=== PATIENT | male | born 1980 | race Caucasian/White ===

== ENCOUNTER 2020-05-18 13:18 | Emergency (ER) | payer SELFPAY ==
--- NOTE | 2020-05-18 13:31 | EDM.PDOC ---
ED HPI GENERAL MEDICAL PROBLEM - General Stated Complaint: abd pain Time Seen by Provider: 05/18/20 13:20 Source of Information: Reports: Patient History Limitations: Reports: No Limitations - History of Present Illness INITIAL COMMENTS - FREE TEXT/NARRATIVE: pt c/o gen weakness , recurrent fever and chills , abd painful cramping and watery diarrhea X 4 days , denies emesis any resp or CV sx any other associated sx or Hx of abd surgeries. abdomen Pain Score (Numeric/FACES): 6 - Related Data Allergies Allergy/AdvReac Type Severity Reaction Status Date / Time No Known Allergies Allergy Verified 05/18/20 13:28 Home Meds: Home Meds Levothyroxine Sodium 300 mcg PO ACBREAKFAST 05/18/20 [History] ED ROS GENERAL - Review of Systems Review Of Systems: See Below Constitutional: Reports: Fever, Chills, Fatigue HEENT: Reports: No Symptoms Respiratory: Reports: No Symptoms Cardiovascular: Reports: No Symptoms GI/Abdominal: Reports: Abdominal Pain, Anorexia, Diarrhea. Denies: Black Stool, Bloody Stool, Nausea, Vomiting : Reports: No Symptoms Musculoskeletal: Reports: No Symptoms Skin: Reports: No Symptoms Neurological: Reports: No Symptoms ED EXAM, GENERAL - Physical Exam Exam: See Below Exam Limited By: No Limitations General Appearance: Mild Distress, Moderate Distress Eye Exam: Bilateral Eye: Normal Inspection Ears: Normal External Exam Nose: Normal Inspection Throat/Mouth: Normal Inspection Neck: Normal Inspection, Supple Respiratory/Chest: No Respiratory Distress, Lungs Clear Cardiovascular: Normal Peripheral Pulses, Regular Rate, Rhythm GI/Abdominal: Normal Bowel Sounds, Tender. No: Guarding, Rebound Back Exam: Normal Inspection, Full Range of Motion Extremities: Normal Inspection, Normal Range of Motion Neurological: Alert, Oriented, CN II-XII Intact Skin Exam: Warm Course - Vital Signs Text/Narrative:: pt report no fever today and that his diarrhea is slowing down since last night, labs came back unremarkable, COVID test is a sent out and results are not available now. pt is resting comfortably after fluids and abd cramps has subsided. pt seems clinically to have gastroenteritis and supportive mng was recommended. Last Recorded V/S: Last Vital Signs Temp 37.6 C 05/18/20 13:20 Pulse 111 H 05/18/20 13:20 Resp 18 05/18/20 13:20 BP 135/80 05/18/20 13:20 Pulse Ox 98 05/18/20 13:20 - Orders/Labs/Meds Orders: Active Orders 24 hr Category Date Time Status CORONAVIRUS COVID-19 PCR PHL Stat Lab 05/18/20 13:32 Ordered Sodium Chloride 0.9% [Normal Saline] 1,000 ml Med 05/18/20 13:32 Active IV .BOLUS Medication Orders Sodium Chloride (Normal Saline) 1,000 mls @ 999 drops/hr IV .BOLUS ONE Stop: 05/19/20 04:32 Last Admin: 05/18/20 13:40 Dose: 999 drops/hr Documented by: TANIA Labs: Laboratory Tests 05/18/20 05/18/20 Range/Units 13:50 13:50 WBC 7.9 (4.5-12.0) X10-3/uL RBC 4.41 (4.30-5.75) x10(6)uL Hgb 13.8 (13.5-17.8) g/dL Hct 41.3 (30.0-51.3) % MCV 93.6 (80-96) fL MCH 31.2 (27.7-33.6) pg MCHC 33.4 (32.2-35.4) g/dL RDW 12.9 (11.5-15.5) % Plt Count 210 (125-369) X10(3)uL Sodium 132 L D (135-145) mmol/L Potassium 3.7 (3.5-5.3) mmol/L Chloride 98 L D (100-110) mmol/L Carbon Dioxide 26 (21-32) mmol/L BUN 11 D (7-18) mg/dL Creatinine 1.2 (0.70-1.30) mg/dL Est Cr Clr Drug Dosing 97.04 mL/min Estimated GFR (MDRD) > 60 (>60) BUN/Creatinine Ratio 9.2 (9-20) Glucose 117 H (80-116) mg/dL Calcium 8.0 L (8.6-10.2) mg/dL Total Bilirubin 0.5 (0.1-1.3) mg/dL AST 26 H (5-25) IU/L ALT 21 (12-36) U/L Alkaline Phosphatase 81 (56-112) IU/L Total Protein 6.7 (6.0-8.0) g/dL Albumin 3.3 L (3.5-5.2) g/dL Globulin 3.4 g/dL Albumin/Globulin Ratio 1.0 Meds: Medications Generic Name Dose Route Start Last Admin Trade Name Abhijit PRN Reason Stop Dose Admin Sodium Chloride 1,000 mls @ 999 drops/hr 05/18/20 13:32 05/18/20 13:40 Normal Saline IV 05/19/20 04:32 999 drops/hr .BOLUS ONE Administration Discontinued Medications Generic Name Dose Route Start Last Admin Trade Name Abhijit PRN Reason Stop Dose Admin Morphine Sulfate 4 mg 05/18/20 13:33 05/18/20 13:55 Morphine IVPUSH 05/18/20 13:34 4 mg ONETIME ONE Administration Departure - Departure Time of Disposition: 14:39 Disposition: Home, Self-Care 01 Clinical Impression: Gastroenteritis - Discharge Information Referrals: PCP,None [Ordering Only Provider] - Sepsis Event Note (ED) - Focused Exam Vital Signs: Vital Signs Temp Pulse Resp BP Pulse Ox 05/18/20 13:20 37.6 C 111 H 18 135/80 98 - My Orders Last 24 Hours: My Active Orders 05/18/20 13:32 CORONAVIRUS COVID-19 PCR PHL Stat Sodium Chloride 0.9% [Normal Saline] 1,000 ml IV .BOLUS - Assessment/Plan Last 24 Hours: My Active Orders 05/18/20 13:32 CORONAVIRUS COVID-19 PCR PHL Stat Sodium Chloride 0.9% [Normal Saline] 1,000 ml IV .BOLUS
[2020-05-18] MEDS ORDERED: Sodium Chloride 0.9% 1,000 ML IV ONE (13:32)
[2020-05-18] MEDS ORDERED: Morphine 4 MG/ML VIAL IVPUSH ONE (13:33)
== END 2020-05-18 15:00 | disposition home or self-care (01) ==
LOC: FB.ED 13:18
DX: K52.9 Noninfective gastroenteritis and colitis, unspecified (principal); Z20.828 Contact with and (suspected) exposure to other viral communicable diseases
CPT/HCPCS: 36415; 80053; 85027; 87635; 96361; 96374; 99284; J2270; J7030; U0002

== ENCOUNTER 2025-08-31 13:46 | Emergency (ER) | payer BC, OTHER ==
[2025-08-31] MEDS ORDERED: Sodium Chloride 0.9% 10 ML Syringe FLUSH PRN (13:59)
[2025-08-31 14:16] LABS: BASOPHILS ABSOLUTE AUTO 0.1 x10-3/uL (0.0-0.3); BASOPHILS PERCENT AUTO 0.9 % (0.3-3.8); EOSINOPHILS ABSOLUTE AUTO 0.2 x10-3/uL (0.0-0.6); EOSINOPHILS PERCENT AUTO 3.4 % (0.1-6.8); LYMPHOCYTES ABSOLUTE AUTO 1.4 x10-3/uL (0.5-4.5); LYMPHOCYTES PERCENT AUTO 19.8 % (15.8-45.3); MEAN PLATELET VOLUME 8.6 fL (6.7-11.0); MONOCYTES ABSOLUTE AUTO 0.5 x10-3/uL (0.0-1.2); MONOCYTES PERCENT AUTO 7.0 % (5.5-15.2); NEUTROPHILS ABSOLUTE AUTO 5.0 x10-3/uL (1.7-6.9); NEUTROPHILS PERCENT AUTO 68.9 % (40.3-71.8); PLATELET COUNT,PLT 273 x10(3)uL (117-477); RED BLOOD CELL COUNT 4.60 x10(6)uL (3.90-5.90); RED CELL DISTRIBUTION WIDTH 13.5 % (12.4-15.0); WHITE BLOOD CELL COUNT,WBC 7.3 x10-3/uL (3.2-10.1)
[2025-08-31] MEDS: Ketorolac 30 MG/ML SDV IVPUSH ONE (14:21)
[2025-08-31 14:26] LABS: BLOOD UREA NITROGEN,BUN 16 mg/dL (7-18); CARBON DIOXIDE,CO2 30 mmol/L (21-32); CHLORIDE,CL 105 mmol/L (100-110); CREATININE 1.0 mg/dL (0.70-1.30); ESTIMATED GFR 95 mL/min (>60); GLUCOSE RANDOM 104 mg/dL (80-116); POTASSIUM,K 4.4 mmol/L (3.5-5.3); SODIUM,NA 141 mmol/L (135-145)
== END 2025-08-31 16:13 | disposition home or self-care (01) ==
LOC: FB.ED 13:46
DX: N20.0 Calculus of kidney (principal); E03.9 Hypothyroidism, unspecified; Z79.890 Hormone replacement therapy; Z79.899 Other long term (current) drug therapy
CPT/HCPCS: 36415; 74176; 80048; 85025; 96374; 96375; 99284; J1885; J2270; J7030

== ENCOUNTER 2025-09-01 23:14 | Emergency (ER) | payer OTHER | END 2025-09-01 23:57 | LOC: FB.ED 23:14 | DX: N20.0 Calculus of kidney (principal); Z79.890 Hormone replacement therapy; Z79.899 Other long term (current) drug therapy | CPT/HCPCS: 99284 ==

== ENCOUNTER 2025-09-03 14:20 | Emergency (ER) | payer OTHER ==
[2025-09-03] MEDS ORDERED: Sodium Chloride 0.9% 10 ML Syringe FLUSH PRN (14:38)
[2025-09-03] MEDS: Ketorolac 30 MG/ML SDV IVPUSH ONE (15:05)
[2025-09-03 15:38] LABS: BASOPHILS ABSOLUTE AUTO 0.1 x10-3/uL (0.0-0.3); BASOPHILS PERCENT AUTO 0.9 % (0.3-3.8); EOSINOPHILS ABSOLUTE AUTO 0.4 x10-3/uL (0.0-0.6); EOSINOPHILS PERCENT AUTO 4.7 % (0.1-6.8); LYMPHOCYTES ABSOLUTE AUTO 1.3 x10-3/uL (0.5-4.5); LYMPHOCYTES PERCENT AUTO 16.6 % (15.8-45.3); MEAN PLATELET VOLUME 8.5 fL (6.7-11.0); MONOCYTES ABSOLUTE AUTO 0.5 x10-3/uL (0.0-1.2); MONOCYTES PERCENT AUTO 6.8 % (5.5-15.2); NEUTROPHILS ABSOLUTE AUTO 5.6 x10-3/uL (1.7-6.9); NEUTROPHILS PERCENT AUTO 71.0 % (40.3-71.8); PLATELET COUNT,PLT 230 x10(3)uL (117-477); RED BLOOD CELL COUNT 4.27 x10(6)uL (3.90-5.90); RED CELL DISTRIBUTION WIDTH 13.5 % (12.4-15.0); WHITE BLOOD CELL COUNT,WBC 8.0 x10-3/uL (3.2-10.1)
[2025-09-03 15:46] LABS: BLOOD UREA NITROGEN,BUN 18 mg/dL (7-18); CARBON DIOXIDE,CO2 30 mmol/L (21-32); CHLORIDE,CL 106 mmol/L (100-110); CREATININE 1.1 mg/dL (0.70-1.30); ESTIMATED GFR 85 mL/min (>60); GLUCOSE RANDOM 99 mg/dL (80-116); POTASSIUM,K 4.5 mmol/L (3.5-5.3); SODIUM,NA 140 mmol/L (135-145)
[2025-09-03 15:51] LABS: A/G RATIO 1.2; ALANINE AMINOTRANSFERASE,ALT 15 U/L (12-36); ASPARTATE AMNIOTRANSFERASE,AST 11 IU/L (5-25); BILIRUBIN TOTAL 0.7 mg/dL (0.1-1.3); PROTEIN TOTAL,TP 6.5 g/dL (6.0-8.0)
[2025-09-03 15:56] LABS: LACTIC ACID 0.7 mmol/L (0.4-2.0)
== END 2025-09-03 17:30 ==
LOC: FB.ED 14:20
DX: G44.209 Tension-type headache, unspecified, not intractable (principal); N20.0 Calculus of kidney; Z79.890 Hormone replacement therapy; Z79.899 Other long term (current) drug therapy
CPT/HCPCS: 36415; 80053; 83605; 83735; 84443; 85025; 86140; 96361; 96374; 99284; J1885; J7030

== ENCOUNTER 2025-09-04 19:25 | Emergency (ER) | payer OTHER | END 2025-09-04 20:15 | disposition home or self-care (01) | LOC: FB.ED 19:25 | DX: S00.03XA Contusion of scalp, initial encounter (principal); Z79.899 Other long term (current) drug therapy; W22.03XA Walked into furniture, initial encounter | CPT/HCPCS: 99284 ==

== ENCOUNTER 2025-09-07 15:49 | Emergency (ER) | payer OTHER ==
[2025-09-07] MEDS: Magnesium Citrate Solution 296 ML Bottle PO ONE (16:29)
[2025-09-07 16:37] LABS: BASOPHILS ABSOLUTE AUTO 0.1 x10-3/uL (0.0-0.3); BASOPHILS PERCENT AUTO 0.8 % (0.3-3.8); EOSINOPHILS ABSOLUTE AUTO 0.6 x10-3/uL (0.0-0.6); EOSINOPHILS PERCENT AUTO 7.0 % (0.1-6.8); LYMPHOCYTES ABSOLUTE AUTO 1.4 x10-3/uL (0.5-4.5); LYMPHOCYTES PERCENT AUTO 16.9 % (15.8-45.3); MEAN PLATELET VOLUME 8.7 fL (6.7-11.0); MONOCYTES ABSOLUTE AUTO 0.6 x10-3/uL (0.0-1.2); MONOCYTES PERCENT AUTO 6.8 % (5.5-15.2); NEUTROPHILS ABSOLUTE AUTO 5.6 x10-3/uL (1.7-6.9); NEUTROPHILS PERCENT AUTO 68.5 % (40.3-71.8); PLATELET COUNT,PLT 271 x10(3)uL (117-477); RED BLOOD CELL COUNT 4.28 x10(6)uL (3.90-5.90); RED CELL DISTRIBUTION WIDTH 13.4 % (12.4-15.0); WHITE BLOOD CELL COUNT,WBC 8.2 x10-3/uL (3.2-10.1)
[2025-09-07 16:40] LABS: BLOOD UREA NITROGEN,BUN 14 mg/dL (7-18); CARBON DIOXIDE,CO2 31 mmol/L (21-32); CHLORIDE,CL 105 mmol/L (100-110); CREATININE 1.2 mg/dL (0.70-1.30); EST CRCL DRUG DOSING (CG) 93.89 mL/min; ESTIMATED GFR 76 mL/min (>60); GLUCOSE RANDOM 93 mg/dL (80-116); POTASSIUM,K 4.8 mmol/L (3.5-5.3); SODIUM,NA 142 mmol/L (135-145)
[2025-09-07 16:46] LABS: A/G RATIO 1.2; ALANINE AMINOTRANSFERASE,ALT 15 U/L (12-36); ASPARTATE AMNIOTRANSFERASE,AST 9 IU/L (5-25); BILIRUBIN TOTAL 0.6 mg/dL (0.1-1.3); PROTEIN TOTAL,TP 6.3 g/dL (6.0-8.0)
[2025-09-07 16:49] LABS: LACTIC ACID 0.9 mmol/L (0.4-2.0)
== END 2025-09-07 17:20 ==
LOC: FB.ED 15:49
DX: E86.0 Dehydration (principal); K59.01 Slow transit constipation; F17.210 Nicotine dependence, cigarettes, uncomplicated; Z79.890 Hormone replacement therapy; Z79.899 Other long term (current) drug therapy
CPT/HCPCS: 36415; 80053; 83605; 83735; 85025; 96360; 99284-25; A9270-GY; J7030

== ENCOUNTER 2025-09-10 16:18 | Emergency (ER) | payer OTHER ==
[2025-09-10 17:02] LABS: BASOPHILS ABSOLUTE AUTO 0.1 x10-3/uL (0.0-0.3); BASOPHILS PERCENT AUTO 1.0 % (0.3-3.8); EOSINOPHILS ABSOLUTE AUTO 0.5 x10-3/uL (0.0-0.6); EOSINOPHILS PERCENT AUTO 8.2 % (0.1-6.8); LYMPHOCYTES ABSOLUTE AUTO 1.5 x10-3/uL (0.5-4.5); LYMPHOCYTES PERCENT AUTO 22.8 % (15.8-45.3); MEAN PLATELET VOLUME 8.7 fL (6.7-11.0); MONOCYTES ABSOLUTE AUTO 0.6 x10-3/uL (0.0-1.2); MONOCYTES PERCENT AUTO 10.0 % (5.5-15.2); NEUTROPHILS ABSOLUTE AUTO 3.7 x10-3/uL (1.7-6.9); NEUTROPHILS PERCENT AUTO 58.0 % (40.3-71.8); PLATELET COUNT,PLT 274 x10(3)uL (117-477); RED BLOOD CELL COUNT 4.63 x10(6)uL (3.90-5.90); RED CELL DISTRIBUTION WIDTH 13.5 % (12.4-15.0); WHITE BLOOD CELL COUNT,WBC 6.4 x10-3/uL (3.2-10.1)
[2025-09-10] MEDS: Iopamidol 755 Mg/ML 100 ML Bottle IV ONE (17:02)
[2025-09-10 17:08] LABS: BLOOD UREA NITROGEN,BUN 16 mg/dL (7-18); CARBON DIOXIDE,CO2 33 mmol/L (21-32); CHLORIDE,CL 103 mmol/L (100-110); CREATININE 1.3 mg/dL (0.70-1.30); ESTIMATED GFR 69 mL/min (>60); GLUCOSE RANDOM 91 mg/dL (80-116); POTASSIUM,K 4.5 mmol/L (3.5-5.3); SODIUM,NA 141 mmol/L (135-145)
[2025-09-10 17:22] LABS: A/G RATIO 1.3; ALANINE AMINOTRANSFERASE,ALT 22 U/L (12-36); ASPARTATE AMNIOTRANSFERASE,AST 10 IU/L (5-25); BILIRUBIN TOTAL 0.6 mg/dL (0.1-1.3); PROTEIN TOTAL,TP 6.6 g/dL (6.0-8.0)
[2025-09-10 20:10] LABS: AMPHETAMINES SCREEN, URINE NEGATIVE (NEGATIVE); BUPRENORPHINE SCREEN,URINE NEGATIVE (NEGATIVE); METHADONE SCREEN, URINE NEGATIVE (NEGATIVE); METHAMPHETAMINE SCREEN, URINE NEGATIVE (NEGATIVE); OXYCODONE SCREEN,URINE NEGATIVE (NEGATIVE)
== END 2025-09-10 21:55 ==
LOC: FB.ED 16:18
DX: T71.162A Asphyxiation due to hanging, intentional self-harm, initial encounter (principal); E20.9 Hypoparathyroidism, unspecified; Z79.890 Hormone replacement therapy; Z79.899 Other long term (current) drug therapy; X83.8XXA Intentional self-harm by other specified means, initial encounter
CPT/HCPCS: 36415; 70496; 70498; 80053; 80143; 80179; 80307; 84443; 85025; 99285; Q9967